=== PATIENT | male | born 1960 | race Caucasian/White ===

== ENCOUNTER 2018-07-31 09:35 | Emergency (ER) | payer MEDICARE ==
[2018-07-31] MEDS ORDERED: Sodium Chloride 0.9% 1,000 ML IV ONE (10:18)
[2018-07-31 10:50] LABS: ANION GAP 9.9 mmol/L (5-15)
--- NOTE | 2018-07-31 10:55 | EDM.PDOC ---
ED HPI GENERAL MEDICAL PROBLEM - General Chief Complaint: General Stated Complaint: NOT FEELING WELL-NOT EATING-SORE ON BOTTOM OF FOOT Time Seen by Provider: 07/31/18 10:23 Source of Information: Reports: Patient, Significant Other History Limitations: Reports: No Limitations - History of Present Illness INITIAL COMMENTS - FREE TEXT/NARRATIVE: Patient presents with complaints of decreased appetite, episode of urine incontinence, fever/chills, chronic diabetic foot wound. He had chills yesterday and again last night. Appetite has been low for 3 days but he has been drinking lots of water. Yesterday he had urine incontinence while sitting in his chair which had never happened before. 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 He has had diabetes for 20 years. He denies any kidney disease, heart or lung problems, history of cancer or chemo/ immunosuppression. His says he doesn't seem himself and is a little confused about things the last 3-4 days. Pt denies known history of MRSA. - Related Data Allergies Allergy/AdvReac Type Severity Reaction Status Date / Time No Known Drug Allergies Allergy Cannot Verified 08/08/15 16:32 Remember venom-honey bee Allergy Edema Verified 08/08/15 16:32 [bee venom (honey bee)] Home Meds: Home Meds traMADol [Ultram] 1 tab PO Q4H PRN 04/11/14 [History] Lisinopril [Prinivil] 40 mg PO DAILY #30 tablet 09/16/14 [Rx] hydroCHLOROthiazide [Hydrochlorothiazide] 25 mg PO DAILY #30 tablet 09/16/14 [Rx ] Insulin Regular, Human [NovoLIN R] 0 unit SUBCUT 0730,1130,1730,2100 vial 08/09 [Rx] Diltiazem HCl [Diltiazem 24Hr ER] 240 mg PO DAILY 07/31/18 [History] Fenofibrate Nanocrystallized [Fenofibrate] 145 mg PO DAILY 07/31/18 [History] Insulin Glarg,Human.Rec.Analog [LantUS Solostar] 75 units SUBCUT BEDTIME [History] Metoprolol Tartrate 25 mg PO DAILY 07/31/18 [History] Metoprolol Tartrate 50 mg PO BEDTIME 07/31/18 [History] cloNIDine [Catapres] 0.2 mg PO DAILY 07/31/18 [History] hydrALAZINE [Apresoline] 100 mg PO BID 07/31/18 [History] metFORMIN HCl [Metformin HCl] 1,000 mg PO BID 07/31/18 [History] Past Medical History Other Musculoskeletal History: bilateral foot wounds, deformities Other Dermatologic History: bilateral feet, dressings d/i. see ER note Social & Family History - Tobacco Use Smoking Status *Q: Never Smoker Second Hand Smoke Exposure: Yes - Caffeine Use Caffeine Use: Reports: Coffee, Soda, Tea - Alcohol Use Days Per Week of Alcohol Use: 1 Number of Drinks Per Day: 1 Total Drinks Per Week: 1 - Recreational Drug Use Recreational Drug Use: No - Living Situation & Occupation Living situation: Reports: Occupation: Disabled ED ROS GENERAL - Review of Systems Review Of Systems: See Below Constitutional: Reports: Fever, Chills, Malaise, Decreased Appetite HEENT: Reports: No Symptoms Respiratory: Denies: Shortness of Breath, Cough Cardiovascular: Denies: Chest Pain, Lightheadedness, Syncope Endocrine: Reports: High Glucose, Polydypsia, Polyuria GI/Abdominal: Denies: Abdominal Pain, Constipation, Diarrhea, Nausea, Vomiting : Denies: Discharge, Dysuria, Flank Pain Musculoskeletal: Reports: Foot Pain (mild) Skin: Denies: Cyanosis, Jaundice, Mottled, Pallor, Diaphoresis Neurological: Denies: Dizziness, Seizure, Syncope, Trouble Speaking, Difficulty Walking Psychiatric: Denies: Agitation, Anxiety Hematologic/Lymphatic: Reports: Easy Bleeding (He was on Eliquis until stopped by his doctor, unsure timeframe) ED EXAM, GENERAL - Physical Exam Exam: See Below Exam Limited By: No Limitations General Appearance: Alert, WD/WN, No Apparent Distress Eye Exam: Bilateral Eye: EOMI, Normal Inspection (full visual guillen), PERRL Ears: Normal External Exam, Hearing Grossly Normal Nose: Normal Inspection, No Blood Throat/Mouth: Normal Inspection, Normal Lips, Normal Gums, Normal Oropharynx, Normal Voice, No Airway Compromise Head: Atraumatic, Normocephalic Neck: Normal Inspection, Supple, Non-Tender, Full Range of Motion. No: Carotid Bruit Respiratory/Chest: No Respiratory Distress, Lungs Clear, Normal Breath Sounds, No Accessory Muscle Use Cardiovascular: Regular Rate, Rhythm, No Edema, No Murmur GI/Abdominal: Normal Bowel Sounds, Soft, Non-Tender, No Organomegaly, No Distention. No: Guarding, Rigid Back Exam: Normal Inspection, Full Range of Motion. No: CVA Tenderness (L), CVA Tenderness (R) Extremities: Other (on the medial plantar right midfoot there is an 8-10 cm area of swelling, warmth and erythema with a 1 cm hole in the center. This is cleaned with alcohol then scraped with an 18 ga needle to induce a little drainage and two wound cultures are obtained. There is no discomfort but patient can feel it he says. Dorsiflexion/plantar flexion are intact. Good dorsalis pedis pulse on right. Medial three toes are surgically absent. The medial dorsal midfoot has a skin graft from an ulcer two years ago that appears very good and non-infected.) Neurological: Alert, Oriented, CN II-XII Intact, Normal Cognition, No Motor/ Sensory Deficits Psychiatric: Normal Affect, Normal Mood Skin Exam: Warm, Dry, Intact, Normal Color, No Rash Course - Vital Signs Last Recorded V/S: Last Vital Signs Temp 101 F H 07/31/18 09:54 Pulse 95 07/31/18 13:07 Resp 18 07/31/18 13:07 BP 142/77 H 07/31/18 13:07 Pulse Ox 92 L 07/31/18 13:07 - Orders/Labs/Meds Orders: Active Orders 24 hr Category Date Time Status CXR [Chest 2V] [CR] Stat Exams 07/31/18 10:55 Ordered Foot 2V Rt [CR] Stat Exams 07/31/18 11:22 Ordered CULTURE BLOOD [BC] Stat Lab 07/31/18 10:53 Ordered CULTURE BLOOD [BC] Stat Lab 07/31/18 10:53 Ordered CULTURE WOUND [RM] Stat Lab 07/31/18 10:43 Ordered MISCELLANEOUS CULT [MREF] Stat Lab 07/31/18 10:43 Received Sodium Chloride 0.9% [Normal Saline] 250 ml Med 07/31/18 12:30 Active IV ONETIME Blood Culture x2 Reflex Set [OM.PC] Stat Oth 07/31/18 10:52 Ordered Medication Orders Sodium Chloride (Normal Saline) 250 mls @ 20 mls/hr IV ONETIME SAVI Last Admin: 10/05/18 12:56 Dose: 20 mls/hr Labs: Laboratory Tests 07/31/18 07/31/18 07/31/18 Range/Units 10:08 10:08 11:15 WBC 24.37 H (5.00-10.00) 10^3/uL RBC 4.27 L (4.50-6.00) 10^6/uL Hgb 13.2 (13.0-17.0) g/dL Hct 36.4 L (40.0-52.0) % MCV 85.2 (82.0-92.0) fL MCH 30.9 (27.0-31.0) pg MCHC 36.3 H (32.0-36.0) g/dL RDW 12.7 (11.5-14.5) % Plt Count 222 (150-400) 10^3/uL MPV 9.3 (7.4-10.4) fL Immature Gran % (Auto) 0.4 (0.0-5.0) % Neut % (Auto) 87.8 H (50.0-70.0) % Lymph % (Auto) 5.4 L (20.0-40.0) % [place] % (Auto) 6.4 (2.0-8.0) % Eos % (Auto) 0.0 L (1.0-3.0) % Baso % (Auto) 0.0 (0.0-1.0) % Immature Gran # (Auto) 0.10 (0.00-0.50) 10^3/uL Neut # (Auto) 21.37 H (2.50-7.00) 10^3/uL Lymph # (Auto) 1.32 (1.00-4.00) 10^3/uL [place] # (Auto) 1.57 H (0.10-0.80) 10^3/uL Eos # (Auto) 0.00 L (0.10-0.30) 10^3/uL Baso # (Auto) 0.01 (0.00-0.10) 10^3/uL Sodium 129 L (136-145) mmol/L Potassium 3.4 (3.3-5.3) mmol/L Chloride 95 L (98-115) mmol/L Carbon Dioxide 27.5 (21.0-32.0) mmol/L Anion Gap 9.9 (5-15) mmol/L BUN 24 (6-25) mg/dL Creatinine 1.58 H (0.51-1.17) mg/dL Est Cr Clr Drug Dosing 59.42 mL/min Estimated GFR (MDRD) 45 mL/min Glucose 353 mg/dL Lactic Acid 1.6 (0.4-2.0) mmol/L Calcium 8.4 L (8.7-10.3) mg/dL Total Bilirubin 1.2 H (0.2-1.0) mg/dL AST 14 L (15-37) U/L ALT 17 (12-78) U/L Alkaline Phosphatase 70 (46-116) IU/L C-Reactive Protein 24.6 H (0.0-0.9) mg/dL Total Protein 6.9 (6.4-8.2) g/dL Albumin 3.05 (3.00-4.80) g/dL Specimen Type Urine Color (YELLOW) Urine Appearance (CLEAR) Urine pH (5.0-9.0) Ur Specific [place] (1.005-1.030) Urine Protein (NEGATIVE) mg/dL Urine Glucose (UA) (NEGATIVE) mg/dL Urine Ketones (NEGATIVE) mg/dL Urine Occult Blood (NEGATIVE) Urine Nitrite (NEGATIVE) Urine Bilirubin (NEGATIVE) Urine Urobilinogen (0.2-1.0) E.U./dL Ur Leukocyte Esterase (NEGATIVE) Urine RBC /HPF Urine WBC /HPF Ur Epithelial Cells /LPF Amorphous Sediment (0/HPF) /HPF Urine Bacteria (NONE TO FEW) /HPF Hyaline Casts (NEGATIVE) /LPF 07/31/18 Range/Units 11:55 WBC (5.00-10.00) 10^3/uL RBC (4.50-6.00) 10^6/uL Hgb (13.0-17.0) g/dL Hct (40.0-52.0) % MCV (82.0-92.0) fL MCH (27.0-31.0) pg MCHC (32.0-36.0) g/dL RDW (11.5-14.5) % Plt Count (150-400) 10^3/uL MPV (7.4-10.4) fL Immature Gran % (Auto) (0.0-5.0) % Neut % (Auto) (50.0-70.0) % Lymph % (Auto) (20.0-40.0) % [place] % (Auto) (2.0-8.0) % Eos % (Auto) (1.0-3.0) % Baso % (Auto) (0.0-1.0) % Immature Gran # (Auto) (0.00-0.50) 10^3/uL Neut # (Auto) (2.50-7.00) 10^3/uL Lymph # (Auto) (1.00-4.00) 10^3/uL [place] # (Auto) (0.10-0.80) 10^3/uL Eos # (Auto) (0.10-0.30) 10^3/uL Baso # (Auto) (0.00-0.10) 10^3/uL Sodium (136-145) mmol/L Potassium (3.3-5.3) mmol/L Chloride (98-115) mmol/L Carbon Dioxide (21.0-32.0) mmol/L Anion Gap (5-15) mmol/L BUN (6-25) mg/dL Creatinine (0.51-1.17) mg/dL Est Cr Clr Drug Dosing mL/min Estimated GFR (MDRD) mL/min Glucose mg/dL Lactic Acid (0.4-2.0) mmol/L Calcium (8.7-10.3) mg/dL Total Bilirubin (0.2-1.0) mg/dL AST (15-37) U/L ALT (12-78) U/L Alkaline Phosphatase (46-116) IU/L C-Reactive Protein (0.0-0.9) mg/dL Total Protein (6.4-8.2) g/dL Albumin (3.00-4.80) g/dL Specimen Type Urinvoid Urine Color Yellow (YELLOW) Urine Appearance Slightly cloudy H (CLEAR) Urine pH 5.5 (5.0-9.0) Ur Specific [place] 1.025 (1.005-1.030) Urine Protein 100 H (NEGATIVE) mg/dL Urine Glucose (UA) 500 H (NEGATIVE) mg/dL Urine Ketones Negative (NEGATIVE) mg/dL Urine Occult Blood Negative (NEGATIVE) Urine Nitrite Negative (NEGATIVE) Urine Bilirubin Negative (NEGATIVE) Urine Urobilinogen 0.2 (0.2-1.0) E.U./dL Ur Leukocyte Esterase Negative (NEGATIVE) Urine RBC 5-10 H /HPF Urine WBC 0-5 /HPF Ur Epithelial Cells Few /LPF Amorphous Sediment Few (0/HPF) /HPF Urine Bacteria Few (NONE TO FEW) /HPF Hyaline Casts Few H (NEGATIVE) /LPF Meds: Medications Generic Name Dose Route Start Last Admin Trade Name Freq PRN Reason Stop Dose Admin Sodium Chloride 250 mls @ 20 mls/hr 07/31/18 12:30 07/31/18 12:56 Normal Saline IV 20 mls/hr ONETIME SAVI Administration Discontinued Medications Generic Name Dose Route Start Last Admin Trade Name Freq PRN Reason Stop Dose Admin Sodium Chloride 1,000 mls @ 999 mls/hr 07/31/18 10:18 07/31/18 10:15 Normal Saline IV 07/31/18 11:18 999 mls/hr .BOLUS ONE Administration Piperacillin Sod/Tazobactam 100 mls @ 200 mls/hr 07/31/18 11:57 07/31/18 13: 02 Sod 4.5 gm/ Sodium Chloride IV 07/31/18 12:26 200 mls/hr Q6H ONE Administration - Re-Assessments/Exams Free Text/Narrative Re-Assessment/Exam: 07/31/18 11:50 WBC 24, ANC 21, CRP 24.6, Lactic acid normal. Discussed findings and recommendations with patient and will plan to transfer to [facility] in [place] for IV antibiotics and likely surgical wound debridement. Called [facility] and spoke briefly with ER MD who directed me to call [facility] transfer line to arrange transfer direct admit with hospitalist. Waiting commission agent livestock back from them now. 07/31/18 11:59 Neda Rosario (hospitalist) from [facility] in [place] called back and we discussed case. She accepted and wants IV antibiotics started here. 07/31/18 13:20 Zosyn is running and patient strongly prefers to go by private car with driving, rather than via ambulance due to [id number] expense. Patient is stable so will send by private car after Zosyn is finished and Vanco can be dosed at [facility]. I discussed this with [facility] provider/nurse. Wound and blood cultures pending. Departure - Departure Time of Disposition: 13:16 Disposition: DC/Tfer to Acute Hospital 02 Condition: Good Clinical Impression: Diabetic infection of right foot, Neutrophilic leukocytosis Fever Qualifiers: Encounter type: initial encounter - Discharge Information Referrals: Arlin Francois MD [Primary Care Provider] - Forms: ED Department Discharge, Interfacility Transfer EMTALA Additional Instructions: 1. Go directly to [facility] in [place] for hospitalization and treatment. - My Orders Last 24 Hours: My Active Orders 07/31/18 10:43 CULTURE WOUND [RM] Stat MISCELLANEOUS CULT [MREF] Stat 07/31/18 10:52 Blood Culture x2 Reflex Set [OM.PC] Stat 07/31/18 10:53 CULTURE BLOOD [BC] Stat CULTURE BLOOD [BC] Stat 07/31/18 10:55 CXR [Chest 2V] [CR] Stat 07/31/18 11:22 Foot 2V Rt [CR] Stat 07/31/18 12:30 Sodium Chloride 0.9% [Normal Saline] 250 ml IV ONETIME - Assessment/Plan Last 24 Hours: My Active Orders 07/31/18 10:43 CULTURE WOUND [RM] Stat MISCELLANEOUS CULT [MREF] Stat 07/31/18 10:52 Blood Culture x2 Reflex Set [OM.PC] Stat 07/31/18 10:53 CULTURE BLOOD [BC] Stat CULTURE BLOOD [BC] Stat 07/31/18 10:55 CXR [Chest 2V] [CR] Stat 07/31/18 11:22 Foot 2V Rt [CR] Stat 07/31/18 12:30 Sodium Chloride 0.9% [Normal Saline] 250 ml IV ONETIME
[2018-07-31] MEDS ORDERED: Piperacillin/Tazobactam 4.5 GM in Sodium Chloride 0.9% 100 ML IV ONE (11:57)
[2018-07-31] MEDS ORDERED: Sodium Chloride 0.9% 250 ML IV SCH (12:30)
[2018-07-31 13:07] VITALS: BP 142/77
== END 2018-07-31 13:30 ==
LOC: KA.ED 09:35
DX: E11.621 Type 2 diabetes mellitus with foot ulcer (principal); D72.828 Other elevated white blood cell count; Z91.012 Allergy to eggs; Z79.4 Long term (current) use of insulin; Z79.899 Other long term (current) drug therapy; Z77.22 Contact with and (suspected) exposure to environmental tobacco smoke (acute) (chronic)
CPT/HCPCS: 36415; 71046; 73620-RT; 80053; 81001; 83605; 85025; 86140; 87040; 87070; 87205; 96361; 96365; 99285; J2543; J7030; J7050

== ENCOUNTER 2019-08-10 08:30 | Day surgery (SDC) | payer MEDICARE ==
[2019-08-10] MEDS ORDERED: Sodium Chloride 0.9% 10 ML Syringe FLUSH PRN (08:45)
[2019-08-10] MEDS ORDERED: Sodium Chloride 0.9% 1,000 ML IV SCH (08:45)
[2019-08-10] MEDS ORDERED: Propofol 200 MG/20 ML SDV ONE (08:51)
[2019-08-10] MEDS ORDERED: Midazolam 1 MG/ML 2 ML SDV ONE (08:51)
--- NOTE | 2019-08-10 09:50 | PCM.PN ---
- General Info Date of Service: 08/10/19 - Review of Systems Systems Review Comment:: 59-year-old male referred for his initial screening colonoscopy. He denies any recent change in bowel pattern. He also denies any known family history of colon cancer. He is medically stable to proceed today. His recent history and physical is reviewed and no significant changes are noted. I discussed the proposed colonoscopy with the patient. Risks such as but not limited to bleeding and GI injury reviewed. He agrees to proceed. - Patient Data Vitals - Most Recent: Last Vital Signs Temp 97.2 F 08/10/19 08:45 Pulse 82 08/10/19 08:45 Resp 18 08/10/19 08:45 BP 150/89 H 08/10/19 08:45 Pulse Ox 94 L 08/10/19 08:45 Weight - Most Recent: 120.202 kg Lab Results Last 24 Hours: Laboratory Results - last 24 hr 08/10/19 Range/Units 08:56 POC Glucose 136 H (74-106) mg/dl Med Orders - Current: Current Medications Sodium Chloride (Normal Saline) 1,000 mls @ 50 mls/hr IV ASDIRECTED [facility] Last Admin: 08/10/19 09:13 Dose: 50 mls/hr Sodium Chloride (Saline Flush) 10 ml FLUSH Q8HR PRN PRN Reason: keep vein open - Problem List Review Problem List Initiated/Reviewed/Updated: Yes - My Orders Last 24 Hours: My Active Orders 08/09/19 15:58 Resuscitation Status Routine 08/10/19 08:45 Blood Glucose Check, Bedside [RC] UPON Patient to Empty Bladder [RC] ASDIRECTED Peripheral IV Care [RC] . DIRECTED Vital Signs [RC] PER UNIT ROUTINE Sodium Chloride 0.9% [Normal Saline] 1,000 ml IV ASDIRECTED Sodium Chloride 0.9% [Saline Flush] 10 ml FLUSH Q8HR PRN Peripheral IV Insertion Adult [OM.PC] Routine 08/10/19 09:45 Verify Patient Consent Obtain [RC] ASDIRECTED 08/10/19 Breakfast Nothing Per Oral Diet [DIET] - Assessment Assessment:: Colon cancer screening - Plan Plan:: Colonoscopy
[2019-08-10] MEDS ORDERED: Midazolam 1 MG/ML 2 ML SDV IV ONE (09:52)
[2019-08-10] MEDS ORDERED: Propofol 200 MG/20 ML SDV IV ONE (09:52)
--- NOTE | 2019-08-10 10:26 | PCM.OPNOTE ---
- General Post-Op/Procedure Note Date of Surgery/Procedure: 08/10/19 Operative Procedure(s): Colonoscopy Findings: Normal colon Pre Op Diagnosis: Colon Cancer Screening Post-Op Diagnosis: Normal Colon Anesthesia Technique: MAC Primary Surgeon: Real Esquivel Pathology: none EBL in mLs: 0 Complications: None Condition: Good
[2019-08-10 11:44] VITALS: BP 128/73; PULSE 74
--- NOTE | 2019-08-10 13:57 | OR ---
DATE OF SURGERY: 08/10/2019 SURGEON: Real Esquivel MD PREOPERATIVE DIAGNOSIS: Colon cancer screening. POSTOPERATIVE DIAGNOSIS: Normal colon. OPERATION PERFORMED: Colonoscopy. INDICATIONS FOR SURGERY: This 59-year-old male is referred for his initial screening colonoscopy. He denies any recent change in bowel pattern. He also denies any known family history of colon cancer. FINDINGS: The patient's colon appeared normal. No polyps or other abnormalities were seen. DESCRIPTION OF PROCEDURE: The patient was taken to the operating room. He was given intravenous sedation and with him in the left lateral decubitus position, digital rectal exam was performed. No rectal masses were noted. The Olympus colonoscope was inserted into the rectum. Retroflexed examination of the rectal canal was performed. The scope was then carefully advanced under direct visualization through the entire length of the colon until the cecum was reached. Cecal acquisition was confirmed by noting normal internal cecal anatomy including the appendiceal orifice and ileocecal valve. The light was also noted to transilluminate the abdominal wall in the right lower quadrant. After examining the cecum, the scope was slowly withdrawn sequentially re- examining the colonic segments until the entire colon and rectum had been fully examined. The scope was removed and the patient was taken from the operating room in satisfactory condition. ESTIMATED BLOOD LOSS: Zero. COMPLICATIONS: None. PROGNOSIS: Good. /[id number]/MODL
== END 2019-08-10 11:25 | disposition home or self-care (01) ==
LOC: KA.SDS 08:30
PROVIDERS: ATTEND Surgery
DX: Z12.11 Encounter for screening for malignant neoplasm of colon (principal); I12.9 Hypertensive chronic kidney disease with stage 1 through stage 4 chronic kidney disease, or unspecified chronic kidney disease; N18.3 Chronic kidney disease, stage 3 (moderate); E11.22 Type 2 diabetes mellitus with diabetic chronic kidney disease; Z91.030 Bee allergy status; Z79.899 Other long term (current) drug therapy; Z79.4 Long term (current) use of insulin
CPT/HCPCS: 00812; 82962; J2250; J2704; J7030

== ENCOUNTER 2021-09-21 11:19 | Emergency (ER) | payer MEDICARE ==
--- NOTE | 2021-09-21 11:29 | EDM.PDOC ---
ED HPI GENERAL MEDICAL PROBLEM - General Chief Complaint: General Stated Complaint: SOB Time Seen by Provider: 09/21/21 11:29 Source of Information: Reports: Patient History Limitations: Reports: No Limitations - History of Present Illness INITIAL COMMENTS - FREE TEXT/NARRATIVE: Mike, 61-year-old male, presents today for evaluation as he is 2+ weeks post Covid diagnosis. He is experiencing some shortness of breath with exertion that resolves when at rest. He states he is improved day by day but thought it was relevant to get his situation looked at. He denies any issues with pallor nor cyanosis. His blood sugars have been much better now stating they were extremely high during his first days of his Covid diagnosis. He did not require hospitalization, has not had chest x-ray or further work-up after the positive Covid test. He denies fever chills or other contributing factors with predominant issue being some exertional shortness of breath resolving at rest. Onset: Gradual - Related Data Allergies Allergy/AdvReac Type Severity Reaction Status Date / Time No Known Drug Allergies Allergy Other Verified 03/02/21 11:18 venom-honey bee Allergy Edema Verified 09/21/21 11:27 [bee venom (honey bee)] Home Meds: Home Meds traMADol [Ultram] 1 tab PO Q4H PRN 04/11/14 [History] hydroCHLOROthiazide [Hydrochlorothiazide] 25 mg PO DAILY #30 tablet 09/16/14 [Rx] lisinopriL [Prinivil] 40 mg PO DAILY #30 tablet 09/16/14 [Rx] Fenofibrate Nanocrystallized [Fenofibrate] 145 mg PO DAILY 07/31/18 [History] Insulin Glarg,Human.Rec.Analog [LantUS Solostar] 76 units SUBCUT BEDTIME 07/31/18 [History] cloNIDine [Catapres] 0.2 mg PO BID 07/31/18 [History] dilTIAZem HCl [Diltiazem 24Hr ER (Cd)] 240 mg PO DAILY 07/31/18 [History] hydrALAZINE [Apresoline] 100 mg PO TID 07/31/18 [History] metFORMIN HCl [Metformin HCl] 1,000 mg PO BID 07/31/18 [History] Hydrocodone/Acetaminophen [HYDROcodone-Acetaminophen 5-325 MG] 1 tab PO Q6H PRN 08/09/19 [History] Insulin Lispro [HumaLOG] See Protocol SQ TIDMEALS 08/09/19 [History] Rosuvastatin Calcium 10 mg PO DAILY 08/09/19 [History] carvediloL [Carvedilol] 25 mg PO BID 08/09/19 [History] Past Medical History HEENT History: Reports: None Cardiovascular History: Reports: Afib, High Cholesterol, Hypertension Respiratory History: Reports: None Gastrointestinal History: Reports: None Genitourinary History: Reports: None Musculoskeletal History: Reports: Amputation Other Musculoskeletal History: bilateral foot wounds, deformities Neurological History: Reports: Neuropathy, Diabetic Psychiatric History: Reports: None Endocrine/Metabolic History: Reports: Diabetes, Type I, Diabetes, Type II, Obesity/BMI 30+ Hematologic History: Reports: None Immunologic History: Reports: None Oncologic (Cancer) History: Reports: None Dermatologic History: Reports: None Other Dermatologic History: bilateral feet, dressings d/i. see ER note - Infectious Disease History Infectious Disease History: Reports: Chicken Pox, Measles, Mumps - Past Surgical History Head Surgeries/Procedures: Reports: None HEENT Surgical History: Reports: None Cardiovascular Surgical History: Reports: None Respiratory Surgical History: Reports: None GI Surgical History: Reports: Appendectomy, Hernia Repair/Other Male Surgical History: Reports: Vasectomy Endocrine Surgical History: Reports: None Neurological Surgical History: Reports: None Musculoskeletal Surgical History: Reports: Amputation Oncologic Surgical History: Reports: None Social & Family History - Family History Family Medical History: No Pertinent Family History - Caffeine Use Caffeine Use: Reports: Coffee, Soda, Tea - Living Situation & Occupation Living situation: Reports: Occupation: Disabled ED ROS GENERAL - Review of Systems Review Of Systems: Comprehensive ROS is negative, except as noted in HPI. ED EXAM, GENERAL - Physical Exam Exam: See Below Free Text/Narrative:: Alert, oriented, in no acute distress. There is no cyanosis nor pallor noted. HEENT is negative discharge or deformity with pink moist mucous membranes. Neck is soft supple with no lymphadenopathy. Thorax is clear with mild raspiness at the bases, slightly diminished with no wheezes no crackles. Cardiac is S1-S2 I do not appreciate murmur. Abdomen is soft bowel sounds are present no tenderness noted. Left lower extremity is amputated below the knee with prosthesis. Right lower extremity has +1 edema with no tenderness or difficulty on motion. #1 Interpretation EKG Date: 09/21/21 Time: 12:03 Rhythm: NSR Rate (Beats/Min): 65 [place]: Normal P-Wave: Present QRS: Normal ST-T: Normal QT: Normal Comparison: NA - No Prior EKG Course - Vital Signs Last Recorded V/S: Last Vital Signs Temp 97.6 F 09/21/21 11:27 Pulse 65 09/21/21 11:27 Resp 16 09/21/21 11:27 BP 165/70 H 09/21/21 11:27 Pulse Ox 95 09/21/21 11:27 - Orders/Labs/Meds Orders: Active Orders 24 hr Category Date Time Status EKG 12 Lead [EK] Stat Ther 09/21/21 11:44 Ordered Labs: Laboratory Tests 09/21/21 09/21/21 Range/Units 12:10 12:10 WBC 9.40 (5.00-10.00) 10^3/uL RBC 3.78 L (4.50-6.00) 10^6/uL Hgb 10.8 L D (13.0-17.0) g/dL Hct 33.0 L (40.0-52.0) % MCV 87.3 (82.0-92.0) fL MCH 28.6 (27.0-31.0) pg MCHC 32.7 (32.0-36.0) g/dL RDW 12.3 (11.5-14.5) % Plt Count 365 D (150-400) 10^3/uL MPV 8.2 (7.4-10.4) fL Immature Gran % (Auto) 0.5 (0.0-5.0) % Neut % (Auto) 73.1 H (50.0-70.0) % Lymph % (Auto) 18.8 L (20.0-40.0) % [place] % (Auto) 5.9 (2.0-8.0) % Eos % (Auto) 1.6 (1.0-3.0) % Baso % (Auto) 0.1 (0.0-1.0) % Neut # (Auto) 6.87 (2.50-7.00) 10^3/uL Lymph # (Auto) 1.77 (1.00-4.00) 10^3/uL [place] # (Auto) 0.55 (0.10-0.80) 10^3/uL Eos # (Auto) 0.15 (0.10-0.30) 10^3/uL Baso # (Auto) 0.01 (0.00-0.10) 10^3/uL Immature Gran # (Auto) 0.05 (0.00-0.50) 10^3/uL Sodium 137 (136-145) mmol/L Potassium 4.2 (3.5-5.1) mmol/L Chloride 98 (98-107) mmol/L Carbon Dioxide 30.2 (21.0-32.0) mmol/L Anion Gap 13.0 (5-15) mmol/L BUN 39 H (7-18) mg/dL Creatinine 2.16 H (0.51-1.17) mg/dL Est Cr Clr Drug Dosing 41.84 mL/min Estimated GFR (MDRD) 31 mL/min Glucose 163 H (70-140) mg/dL Calcium 8.9 (8.7-10.3) mg/dL Total Bilirubin 0.3 (0.2-1.0) mg/dL AST 13 L (15-37) U/L ALT 15 (14-63) U/L Alkaline Phosphatase 44 L (46-116) U/L Total Protein 6.9 (6.4-8.2) g/dL Albumin 2.45 L (3.40-5.00) g/dL Departure - Departure Time of Disposition: 12:43 Disposition: Home, Self-Care 01 Condition: Good Clinical Impression: SOB (shortness of breath) on exertion, [id number] syndrome - Discharge Information *PRESCRIPTION DRUG MONITORING PROGRAM REVIEWED*: Not Applicable *COPY OF PRESCRIPTION DRUG MONITORING REPORT IN PATIENT ROSIO: Not Applicable Instructions: Shortness of Breath, Adult, [id number], Symptoms of COVID-19 - CDC (12/18/2020) Referrals: Arlin Francois MD [Primary Care Provider] - Forms: ED Department Discharge Additional Instructions: Your lab work reflects stability in your kidney function and hemoglobin. Your chest x-ray shows the continued aftermath of Covid pneumonia. This should be rechecked in the upcoming month as long as you continue to improve. In the event you feel like you are getting worse return to the emergency department or contact the clinic during clinic hours. Continue all your medications as directed and follow-up as previously scheduled for your diabetes and renal function and as needed for other concerns. Make sure to maintain good hydration and balance your diabetic intake. Sepsis Event Note (ED) - Focused Exam Vital Signs: Vital Signs Temp Pulse Resp BP Pulse Ox 09/21/21 11:27 97.6 F 65 16 165/70 H 95 - Problem List & Annotations (1) SOB (shortness of breath) on exertion SNOMED Code(s): 06490413 Code(s): R06.02 - SHORTNESS OF BREATH Status: Acute Priority: High (2) [id number] syndrome SNOMED Code(s): 130061629, 495785077 Code(s): U09.9 - POST COVID-19 CONDITION, UNSPECIFIED Status: Acute - Problem List Review Problem List Initiated/Reviewed/Updated: Yes - My Orders Last 24 Hours: My Active Orders 09/21/21 11:44 EKG 12 Lead [EK] Stat - Assessment/Plan Last 24 Hours: My Active Orders 09/21/21 11:44 EKG 12 Lead [EK] Stat Plan: Your lab work reflects stability in your kidney function and hemoglobin. Your chest x-ray shows the continued aftermath of Covid pneumonia. This should be rechecked in the upcoming month as long as you continue to improve. In the event you feel like you are getting worse return to the emergency department or contact the clinic during clinic hours. Continue all your medications as directed and follow-up as previously scheduled for your diabetes and renal function and as needed for other concerns. Make sure to maintain good hydration and balance your diabetic intake.
[2021-09-21 11:30] VITALS: BP 165/70; PULSE 65
--- NOTE | 2021-09-21 12:09 | CR ---
[id number] RAD/RAD Chest PA And Lateral EXAM: RAD Chest PA And Lateral INDICATION: POST COVID EXERTIONAL SHORT OF BREATH. COMPARISON: August 06, 2018. DISCUSSION: Interval development of patchy peripheral predominant bilateral infiltrates, left greater than right. These are nonspecific but compatible the clinical history of COVID pneumonia. Stable cardiomegaly without evidence of edema. Interval removal of a right upper extremity PICC. No effusions. IMPRESSION: 1. Development of bilateral peripheral predominant airspace opacities compatible the clinical history of COVID pneumonia. Gonzales Lazo MD 09/21/21 0998 Thank you for allowing us to participate in the care of your patient.
== END 2021-09-21 11:48 | disposition home or self-care (01) ==
LOC: KA.ED 11:19
DX: R06.02 Shortness of breath (principal); U09.9 Post COVID-19 condition, unspecified; I48.91 Unspecified atrial fibrillation; E78.00 Pure hypercholesterolemia, unspecified; I10 Essential (primary) hypertension; E13.40 Other specified diabetes mellitus with diabetic neuropathy, unspecified; E66.9 Obesity, unspecified; Z68.32 Body mass index [BMI] 32.0-32.9, adult; Z91.030 Bee allergy status; Z79.84 Long term (current) use of oral hypoglycemic drugs; Z79.899 Other long term (current) drug therapy
CPT/HCPCS: 36415; 71046; 80053; 85025; 93010; 99284; 99285-25